=== PATIENT | male | born 1965 | race Caucasian/White ===

== ENCOUNTER 2017-08-07 08:28 | Outpatient (CLI) | payer BC ==
--- NOTE | 2017-08-07 10:33 | ULT ---
TESTICULAR ULTRASOUND: DATE: 08/07/17. HISTORY: Intermittent scrotal swelling. FINDINGS: The testicles demonstrate a normal sonographic appearance bilaterally with homogeneous and symmetric echotexture. The right testicle measures 4 cm x 2.1 cm x 2.8 cm with the left testicle measuring 4.4 cm x 2.1 cm x 2.6 cm. No testicular mass is seen. The right epididymis demonstrates nonspecific mild heterogeneity. The left epididymis has a normal s onographic appearance. There is a small amount of fluid bilaterally which probably represents a physiologic amount of fluid on the right with a suggestion of a small hydrocele on the left. There is an area of increased echogenicity within the region of the left inguinal canal and extending into the left aspect of the scrotum. There is also a tubular-appearing structure with hypoechoic ar ea peripherally and central area of increased echogenicity which has the appearance of a loop of corey l. No definitive peristalsis was able to delineated, but this has the appearance of a loop of bowel and suggests left inguinal hernia. There does appear to be mild skin thickening involving the scrotum. IMPRESSION: 1. Findings suspicious for left inguinal hernia which contains fat and a loop of bowel extending int o the left aspect of the scrotum. This does displace the testicles to the right. CT scan examinatio n may be helpful for confirmation. 2. Normal-appearing bilateral testicles without evidence of a testicular mass. Arterial flow is doc umented in each testicle. 3. Very small left hydrocele with probable physiologic amount of fluid on the right. POS: [facility]
== END 2017-08-07 08:29 | disposition home or self-care (01) ==
LOC: ULT 08:28
PROVIDERS: ATTEND Urology
DX: N43.3 Hydrocele, unspecified (principal)
CPT/HCPCS: 36415; 76870; 81003; 83036; 87086; 93976; G0103

== ENCOUNTER 2017-08-21 16:15 | Outpatient (CLI) | payer BC ==
[2017-08-21 17:59] LABS: #Basophils 0.1 thou/uL (0.0-0.2); #Eosinphils 0.1 thou/uL (0.0-0.7); #Lymphocytes 2.5 thou/uL (1.20-3.40); #Monocytes 0.5 thou/uL (0.11-0.59); #Neutrophils 3.5 thou/uL (1.40-6.50); %Lymphocytes 36.9 % (21.0-51.0); %Monocytes 7.7 % (0.0-10.0); Mean Platelet Volume 7.9 fL (7.4-10.4); Red Blood Cell (RBC) Count 5.13 mill/uL (4.70-6.10); White Blood Cell (WBC) Count 6.7 thou/uL (4.8-10.8)
[2017-08-21 18:25] LABS: ALT (SGPT) 62 U/L (8-55); AST (SGOT) 39 U/L (5-34); Alkaline Phosphatase 62 U/L (40-150); Anion Gap 11 mmol/L (10-20); BUN (Urea Nitrogen) 15 mg/dL (8.4-25.7); Bilirubin, Total 0.6 mg/dL (0.2-1.2); Calc. Creatinine Clearance 0 mL/min (70-130); Calcium 9.9 mg/dL (7.8-10.44); Carbon Dioxide 30 mmol/L (22-29); Chloride 103 mmol/L (98-107); Estimated GFR-MDRD Greater than 90; Globulin 2.8 g/dL (2.4-3.5); Protein, Total 7.3 g/dL (6.0-8.3)
--- NOTE | 2017-08-22 13:12 | EKG ---
Test Reason : Blood Pressure : / mmHG Vent. Rate : 079 BPM Atrial Rate : 079 BPM P-R Int : 154 ms QRS Dur : 102 ms QT Int : 392 ms P-R-T Axes : 040 082 015 degrees QTc Int : 449 ms Normal sinus rhythm Possible Inferior infarct (cited on or before 03-AUG-2015)(Doubtful) Possible Anterior infarct (cited on or before 03-AUG-2015) Abnormal ECG When compared with ECG of 03-AUG-2015 10:38, No significant change was found Confirmed by LUCIAN TAI ([id number]) on 08/22/2017 1:12:28 PM Referred By: Confirmed By:LUCIAN TAI
== END 2017-08-21 16:16 | disposition home or self-care (01) ==
LOC: LABBT 16:15
PROVIDERS: ATTEND Surgery
DX: Z01.818 Encounter for other preprocedural examination (principal); K40.90 Unilateral inguinal hernia, without obstruction or gangrene, not specified as recurrent
CPT/HCPCS: 80053; 85025; 93005; 93010

== ENCOUNTER 2019-04-03 13:36 | Outpatient (CLI) | payer BC ==
--- NOTE | 2019-04-03 14:28 | ULT ---
TESTICULAR/SCROTAL ULTRASOUND: 04/03/19 COMPARISON: 08/07/17. HISTORY: Status post left inguinal hernia repair with swelling in the left scrotum. TECHNIQUE: Multiplanar jean scale and color Doppler images were obtained in a testicular/scrotal ultrasound. FINDINGS: The right testicle is normal in echogenicity without focal lesions and demonstrates normal internal flow. The left testicle also demonstrates normal internal flow without focal abnormality. There is a small to moderate left hydrocele. Just above the left testicle, there is a complex structure containi ng no significant internal flow with septations. This may represent a complex resorbing hematoma. The re is prominent vasculature along the lateral aspect of the left testicle/scrotum. IMPRESSION: 1. Small to moderate left hydrocele. 2. Complex lesion just superior to the left testicle and inguinal region. This may represent a r esorbing hematoma. POS: OFF
== END 2019-04-03 13:37 | disposition home or self-care (01) ==
LOC: BICULT 13:36
PROVIDERS: ATTEND Urology
DX: N43.3 Hydrocele, unspecified (principal); N50.89 Other specified disorders of the male genital organs
CPT/HCPCS: 76870; 93976

== ENCOUNTER 2020-03-09 13:22 | Outpatient (CLI) | payer BC ==
--- NOTE | 2020-03-09 14:42 | ULT ---
Exam: Testicular ultrasound HISTORY: Hydrocele. Previous left inguinal hernia repair. Previous mass noted in the left inguinal he rnia. COMPARISON: 04/03/2019 TECHNIQUE: Sagittal and transverse imaging of the left and right hemiscrotum are performed. Testicula r Doppler is performed with grayscale, color-flow, Doppler imaging and spectral waveform analysis. FINDINGS: Right hemiscrotum: Testicle: Slightly heterogeneous echotexture without discrete masses. Right testicle measurements: 4.5 x 2.3 x 3.1 Right epididymis: Normal echotexture. Right epididymis measurements: 0.6 x 0.8 cm Hydrocele: Small Left hemiscrotum: Left testicle: Homogeneous echotexture. No intratesticular masses. Left testicle measurements: 3.0 x 4.7 x 3.1 cm Left epididymis: Not appreciated Left epididymis measurements:Not applicable Hydrocele: Large Left inguinal canal: Redemonstration of a mixed echotexture probably solid mass in the left inguinal canal measuring 4.6 cm x 4.7 x 4.4 cm. Testicular Doppler: There is symmetric vascular flow to the left and right testicle. IMPRESSION: 1. Slightly heterogeneous echotexture the right testicle nonspecific. No testicular masses 2. Symmetric vascular flow to the testicles 3. Persistent soft tissue echotexture mass in the left inguinal canal. Lesion is avascular. Possibili ty of a chronic hematomas raised.
== END 2020-03-09 13:23 | disposition home or self-care (01) ==
LOC: SCSULT 13:22
PROVIDERS: ATTEND Urology
DX: N43.3 Hydrocele, unspecified (principal); K46.9 Unspecified abdominal hernia without obstruction or gangrene; R19.00 Intra-abdominal and pelvic swelling, mass and lump, unspecified site
CPT/HCPCS: 76870; 76999; 93976